=== PATIENT | female | born 1990 | race Caucasian/White ===

== ENCOUNTER → 2019-04-30 10:09 | Outpatient (BNVA) | payer SELFPAY | PROVIDERS: PCP Family Medicine; Visit Provider Nurse Practitioner | DX: J02.9 Acute pharyngitis, unspecified (principal); R50.9 Fever, unspecified | CPT/HCPCS: 87081; 87880 ==

== ENCOUNTER → 2019-11-01 15:28 | Outpatient (BNVA) | payer OTHER, SELFPAY | PROVIDERS: Family Provider Family Medicine; PCP Family Medicine; Visit Provider Nurse Practitioner | DX: M79.643 Pain in unspecified hand (principal) | CPT/HCPCS: 73110 ==

== ENCOUNTER → 2020-02-14 16:29 | Outpatient (BNVA) | payer OTHER, SELFPAY | PROVIDERS: Family Provider Family Medicine; PCP Family Medicine; Visit Provider Nurse Practitioner | DX: J02.9 Acute pharyngitis, unspecified (principal) | CPT/HCPCS: 87071; 87880 ==

== ENCOUNTER 2020-02-25 17:05 | Inpatient (IN) | payer SELFPAY ==
[2020-02-25 17:27] VITALS: BP 136/78; PULSE 128; RESP 18; TEMP 36.7; O2SAT 98; BMI 35.4
[2020-02-25 18:46] VITALS: BP 124/95; RESP 22; O2SAT 99
[2020-02-25] MEDS: diphenhydrAMINE 50 mg/mL SDV 1mL IVP (19:34)
[2020-02-25] MEDS: ketorolac 30 mg/mL INJ IVP (19:34)
[2020-02-25] MEDS: sodium chloride 0.9% 1,000 ML 999 ML IV ×3 (19:34→23:09)
[2020-02-25] MEDS: metoclopramide 5 mg/mL SDV 2 mL 10 MG IVP (19:34)
[2020-02-25 19:40] LABS: Basophils % 0.3 %; Eosinophils # 0.1 10^3/uL (0.0-0.8); Eosinophils % 1.4 %; Hematocrit 39.7 % (37.0-47.0); Hemoglobin 12.6 g/dL (11.5-15.3); Lymphocytes # 0.7 10^3/uL (0.8-4.8); Lymphocytes % 8.5 %; Mean Corpuscular HGB Conc 31.7 g/dL (30.0-36.0); Mean Corpuscular Hemoglobin 28.8 pg (28.0-34.0); Mean Corpuscular Volume 90.8 fL (81-99); Mean Platelet Volume 12.1 fL (7.4-10.4); Monocytes # 0.6 10^3/uL (0.2-0.9); Monocytes % 7.1 %; Neutrophils # 7.11 10^3/uL (1.8-7.7); Nucleated Red Blood Cells % 0 %; Platelet Count 178 10^3/cmm (130-400); Red Blood Count 4.37 10^6/uL (4.1-5.3); Red Cell Distribution Width 13.3 % (12.1-15.1); White Blood Count 8.7 10^3/uL (4.0-10.0)
[2020-02-25 20:06] LABS: Lactate (Lactic Acid level) 1.5 mmol/L (0.5-2.2)
[2020-02-25 20:14] LABS: HCG, Serum Qual Negative (Negative); Procalcitonin 2.89 ng/mL (0-0.5)
[2020-02-25 20:25] LABS: Alanine Aminotransferase 22 U/L (0-33); Alkaline Phosphatase 103 IU/L (35-105); Anion Gap 17.7 (5-19); Aspartate Amino Transferase 16 U/L (0-32); Blood Urea Nitrogen 28 mg/dL (6-20); Calcium 10.2 mg/dL (8.5-10.5); Carbon Dioxide 23 mmol/L (22-29); Chloride 97 mmol/L (98-107); Creatine Phosphokinase 37 U/L (26-192); Globulin 3.6 g/dL (1.3-4.6); Glomerular Filtration Rate 25.4 mL/min (90-130); Glucose 91 mg/dL (65-115); Osmolality Calculated 283 mOsm/kg (285-295); Potassium 3.7 mmol/L (3.5-5.1); Sodium 134 mmol/L (136-145); Total Bilirubin 0.5 mg/dL (0.15-1.2); Total Protein 7.6 g/dL (6.6-8.7)
[2020-02-25 20:35] LABS: Influenza A by IFA Negative (Negative)
[2020-02-25 20:36] LABS: Influenza B by IFA Negative (Negative)
[2020-02-25 20:37] LABS: SARS Covid-2 Antigen Negative (Negative)
[2020-02-25 20:38] LABS: C Reactive Protein 511.9 mg/L (0.0-4.9)
--- NOTE | 2020-02-25 21:30 | XR_ITS ---
WS: [id number] Exam: XR chest 1V portable [id number] Date/Time of Exam: 02/25/2020 9:41 PM Reason For Exam: fever No priors. Findings: The lungs are clear and fully expanded. Costophrenic angles are sharp. No infiltrates. Bronchovascula r relief appears normal. Cardiac silhouette is unremarkable. Bony elements are intact. XR/XR chest 1V portable [id number] IMPRESSION: Unremarkable chest radiograph.
--- NOTE | 2020-02-25 21:36 | PM.HP ---
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 Patient stating that her symptoms started with a headache on Sunday, she has history of migraines, she would describe this headache as throbbing migraine type headache, she did not notice any relationship with food, she is not sure about aggravating factors, she has taken 200 mg of ibuprofen 4 tablets x 4 a day with very poor p.o. intake, she has not noticed any vomiting but she has been nauseous, she took Imitrex 200mg. Her headache is not improving, she has not noticed any chest pain, she is not , she has not noticed any shortness of breath. Today she went to clinic, she had fever 102, tachycardic, she was complaining of dysuria, she was started on nitrofurantoin, she only took 1 tablet today because of worsening of symptoms she decided to come to the hospital for further evaluation. Diagnostics in the ER revealed sepsis, she was complaining of right flank pain, I have requested chest x-ray, CT abdomen pelvis, started on cefepime considering cystic fibrosis history. Requested blood culture and urine culture. Diagnostics reveal sepsis and GUTIERREZ on high procalcitonin, at the time of my evaluation patient was diaphoretic She is endorsing right flank pain, rigors, chills, diaphoresis and dysuria Review of Systems Const: Reports: fever(s), chills, body aches, change in appetite, fatigue and malaise Eyes: Denies: change in vision ENMT: Denies: throat pain Card: Denies: chest pain Resp: Denies: dyspnea GI: Reports: abdominal pain : Reports: flank pain Musc: Denies: neck pain Skin/Breast: Denies: rash Neuro: Denies: headache(s) Psych: Denies: anxiety Endo: Denies: polyuria Pan/Lymph: Denies: easy bruising All/Imm: Denies: urticaria Medications/Allergies Home Medications Medication Instructions Recorded Confirmed Last Taken Type Imitrex See Rx Instructions .ROUTE .COMPLEX 02/25/20 02/25/20 02/25/20 15:00 History Tylenol 3 tab PO PRN 02/25/20 02/25/20 Unknown History ibuprofen 800 mg PO PRN 02/25/20 02/25/20 02/25/20 History nitrofurantoin monohyd/m-cryst 100 mg PO BID 02/25/20 02/25/20 02/25/20 History [Macrobid] ondansetron HCl [Zofran] 4 - 8 mg PO PRN 02/25/20 02/25/20 02/25/20 15:00 History venlafaxine See Rx Instructions .ROUTE .COMPLEX 02/25/20 02/25/20 Unknown History Allergies Allergy/AdvReac Type Severity Reaction Status Date / Time amoxicillin Allergy Severe anaphylaxis Verified 02/25/20 18:22 latex Allergy Rash Verified 02/25/20 18:22 Penicillins Allergy ALGY-Difficulty Verified 02/25/20 18:22 Breathing azithromycin AdvReac Violence Verified 02/25/20 18:22 midazolam [From Versed] AdvReac ADR-Halluci Verified 02/25/20 18:22 nating PFSH Acute PFSH: Medical History (Updated 02/25/20 @ 22:01 by Varun Boogie MD) 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 Depression Fibromyalgia Diag age 18. Surgical History History of bilateral tubal ligation (02/11/19) Laparoscopic bilateral complete salpingectomy. Performed by Dr. Bustos at [facility] [place]. History of bladder surgery (~2004) Reconstruction by Dr. Willson History of tonsillectomy and adenoidectomy (~2005) Family History Mother Lung disease Diabetes Social History Smoking and tobacco status: former smoker Quit status (tobacco): has quit using tobacco Year quit tobacco: 09/2014 Former quit date comment: Started smoking at age 17 and smoked 1 pack per day Alcohol intake: never Female Reproductive History: Date of last menstrual period: 02/18/20 Vitals/I&O/Wt Last Vital Signs Temp 98.0 F 02/25/20 17:27 Pulse 128 H 02/25/20 17:27 Resp 22 H 02/25/20 18:46 BP 124/95 02/25/20 18:46 Pulse Ox 99 02/25/20 18:46 Weight last 48 hrs Weight 90.718 kg Physical Exam Narrative: EXAM NARRATIVE: Patient obese female She is currently in a dark room, bright light would bother her Saturating well on room air, tachycardic Normal blood pressure Right CVA tenderness positive Abdomen soft, distended, mild tenderness in right mid epigastric region, right flank Lower extremity no edema gangrene or ulcer Appropriate mood and affect No neurological deficit Does not look extremely dehydrated No acute respiratory distress No gross cranial nerve deficit noted Data : 02/25/20 19:29 02/25/20 19:29 A&P Assessment and plan (1) Sepsis: Status: Acute (2) UTI (urinary tract infection): Status: Acute (3) Migraine: Status: Acute (4) GUTIERREZ (acute kidney injury): Status: Acute Additional A&P Information Sepsis secondary to UTI Patient has history of cystic fibrosis, will obtain chest x-ray, obtain blood culture, urine culture CT abdomen pelvis revealed right-sided pyelonephritis, clinically she has right CVA tenderness Meet sepsis criteria with fever at the clinic 102, tachycardic tachypneic in the ER, positive procalcitonin, she is having rigors, chills, she is diaphoretic Start her on fluids and cefepime considering history of cystic fibrosis Migraine Failed Imitrex and ibuprofen therapy at home, I would use Tylenol 3 and morphine Acute kidney injury This most likely is secondary to use of ibuprofen 3200 mg a day without increasing fluid intake Started on fluids, monitor BMP, rule out pyelonephritis Awaiting urine culture Full code Regular diet DVT prophylaxis not needed, she is low risk Attestations Medical Necessity Statement*: Anticipating stay in the hospital cross more than 2 midnights continued IV antibiotics and fluids for sepsis Time Spent in Patient Care: (>than 50% of time spent in counselling and/or direct pt care on unit). 50mins Coding Level of Care Code Acute Hose Maker for [facility] Fwd Diagnoses Sepsis A41.9 UTI (urinary tract infection) N39.0 Migraine G43.909 GUTIERREZ (acute kidney injury) N17.9
--- NOTE | 2020-02-25 21:52 | CTR_ITS ---
PROCEDURE INFORMATION: Exam: CT Abdomen And Pelvis Without Contrast Exam date and time: 02/25/2020 10:11 PM Age: 29 years old Clinical indication: Abdominal pain; Localized; Right; Prior surgery; Surgery type: Bladder, tubal; Additional info: Pyeloneph right TECHNIQUE: Imaging protocol: Computed tomography of the abdomen and pelvis without contrast. Sagittal and coronal reformatted images were created and reviewed. Radiation optimization: All CT scans at this facility use at least one of these dose optimization techniques: automated exposure control; mA and/or kV adjustment per patient size (includes targeted exams where dose is matched to clinical indication); or iterative reconstruction. COMPARISON: US Viabile 1-10 Wk [id number] 07/13/2018 10:52 PM RADIATION DOSE METRICS: Total DLP (mGy-cm): 1365.69 FINDINGS: Limitations: Evaluation of solid organs and vasculature is limited without intravenous contrast. Lungs: Visualized lungs are clear. Pleural space: No pleural effusion. Heart: Visualized portions of the heart are unremarkable. Liver: The liver is unremarkable. Gallbladder and bile ducts: The gallbladder is unremarkable. No biliary ductal dilatation. Pancreas: The pancreas is unremarkable. No pancreatic ductal dilatation. Spleen: Mild enlargement of the spleen measuring 15.2 cm in length (series 602, image 33). Adrenal glands: The right and left adrenal glands are unremarkable. Kidneys and ureters: Enlargement of the right kidney suggesting edema. Extensive right perinephric inflammation. Inflammatory changes extend inferiorly along the right ureter. Mildly complex cyst with wall calcification in the right kidney measuring 4.7 cm. The left kidney is unremarkable. The left ureter is unremarkable. No hydroureteronephrosis. Stomach and bowel: Nonspecific air-fluid levels present in the small bowel and colon. No dilated bowel loops. No pneumatosis. No bowel wall thickening. Appendix: The appendix is visualized and is unremarkable. No findings to suggest acute appendicitis. Intraperitoneal space: No free intraperitoneal air. No ascites. No loculated fluid collections to suggest an abscess. Vasculature: No evidence for aortic aneurysm. Lymph nodes: No lymphadenopathy. Urinary bladder: The bladder is incompletely filled, which can limit evaluation. No focal abnormality in the bladder however. Reproductive: The uterus, right ovary, and left ovary are unremarkable. Bones/joints: No acute fracture. Soft tissues: The extra-abdominal soft tissues are unremarkable. CT/CT abdomen pelvis wo con [id number] IMPRESSION: 1. Evaluation is limited without intravenous contrast. There are findings suspicious for right pyelonephritis/ureteritis however. Recommend clinical correlation. 2. Bosniak type 2 cyst in the right kidney. No further workup recommended. 3. Mild splenomegaly. COMMENTS: Consistent with the [employer]'s Incidental Findings Committee white paper (J Am Royal Radiol 2018): Any incidental renal lesion less than 1 cm or classified as too small to characterize, or any incidental cystic renal lesion characterized as simple-appearing, is likely benign. No follow-up imaging is recommended for these lesions per consensus recommendations based on imaging criteria. Radiation Dose CTDIVOL = (mGy): DLP = 1365.69 (mGy-cm)
[2020-02-25 22:41] VITALS: BP 95/56; PULSE 90; RESP 18; O2SAT 97
[2020-02-25 23:10] VITALS: BP 93/56; PULSE 86; RESP 15; O2SAT 97
--- NOTE | 2020-02-25 23:39 | ED_ITS ---
HPI - Headache General: Chief Complaint: Headache Stated Complaint: MIGRAINE X 4 DAYS Time Seen by Provider: 02/25/20 18:30 Source: patient Mode of arrival: ambulatory Limitations: no limitations History of Present Illness: HPI Narrative: 29-year-old female patient with a history of migraines presents to the emergency department with migraine headaches that have been ongoing for about 4 days. She states that the migraines feel typical for her but is just more severe than usual. She has also had a fever and is on antibiotics for urinary tract infection. She has light and sound sensitivity. MD elicited complaint: headache and migraine Pertinent past history: migraines Onset (ago): day(s) (4) Onset description: suddenly Location: generalized Severity: severe Quality & Timing: throbbing Exacerbating factors: light and noise Relieving factors: nothing Associated symptoms: Reports fever(s), nausea, vomiting and weakness; Deny chest pain, confusion, cough, diaphoresis, eye pain, eye redness, lightheadedness, loss of vision, malaise, neck stiffness, numbness, paresthesias, photophobia, pre-syncope, rash, seizures, short of breath, sound sensitivity or syncope Treatments prior to arrival: acetaminophen, ibuprofen and migraine medication Review of Systems General: Reports: 10 or more systems reviewed and unremarkable except in HPI and below Const: Reports: fever(s); Denies: malaise or diaphoresis Eyes: Denies: change in vision or blurry vision ENMT: Denies: throat pain, enlarged tonsils, odynophagia, hoarseness, mouth pain or swelling of lips/tongue Card: Denies: chest pain, lightheadedness, syncope or pre-syncope Resp: Denies: dyspnea, productive cough or non-productive cough GI: Reports: nausea and vomiting : Reports: oliguria; Denies: flank pain, difficulty voiding, dysuria, urinary frequency, urinary urgency or urinary hesitancy Musc: Denies: neck pain, back pain or extremity swelling Skin/Breast: Denies: rash Neuro: Denies: confusion Endo: Denies: polyuria, polydipsia or tired all the time [facility] ED PFSH: Medical History (Updated 02/25/20 @ 23:53 by Elvia Cruz MD, [facility] [place]) 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 Depression Fibromyalgia Diag age 18. Surgical History History of bilateral tubal ligation (02/11/19) Laparoscopic bilateral complete salpingectomy. [place] [facility] [place] of bladder surgery (~2004) Reconstruction by Dr. Willson History of tonsillectomy and adenoidectomy (~2005) Family History Mother Lung disease Diabetes Social History Smoking and tobacco status: former smoker Quit status (tobacco): has quit using tobacco Year quit tobacco: 09/2014 Former quit date comment: Started smoking at age 17 and smoked 1 pack per day Alcohol intake: never Female Reproductive History: Date of last menstrual period: 02/18/20 Physical Exam Const: COMMON NORMALS: no acute distress, average body habitus, patient oriented x3, no limitations, healthy appearing, alert and well nourished HENMT: COMMON NORMALS: normocephalic, atraumatic and moist oral mucous membranes HEAD & SCALP: normocephalic, atraumatic and scalp tenderness Eye: COMMON NORMALS: Equal, round and reactive pupils present, EOMs intact bilaterally, conjunctivae normal and no scleral icterus CONJUNCTIVA: Yes conjunctivae normal PUPIL: Yes Equal, round and reactive pupils present DIRECT OPHTHALMOSCOPY: No photophobia Neck/C-Spine: COMMON NORMALS: full ROM, supple, no meningeal signs, no JVD and No carotid bruits Resp: COMMON NORMALS: normal respiratory effort, No retractions, No use of accessory muscles, clear to auscultation bilaterally and percussion normal AUSCULTATION: clear to auscultation bilaterally PERCUSSION: percussion normal Cardio: COMMON NORMALS: no JVD, regular rate, regular rhythm, S1 normal heart sound present, S2 normal heart sound present, No gallops present (Cardio), No clicks present (Cardio), No murmurs present (Cardio), No rub (Cardio) and Peripheral pulses 2+ throughout RATE: regular rate RHYTHM: regular rhythm HEART SOUNDS: S1 normal heart sound present and S2 normal heart sound present PERIPHERAL PULSES: Peripheral pulses 2+ throughout GI: COMMON NORMALS: Normal to inspection, nondistended, normoactive bowel sounds present, Soft to palpation, non-tender, No hepatosplenomegaly present, no masses and no bruits PALPATION: Yes Soft to palpation and Yes No hepatosplenomegaly present Extremity: COMMON NORMALS: normal to inspection, full ROM, capillary refill normal, no calf tenderness and no pedal edema Neuro: COMMON NORMALS: patient oriented x3 SENSORIUM/ORIENTATION: Yes alert MENINGEAL SIGNS: Yes no meningeal signs Skin: COMMON NORMALS: no rashes or lesions noted, no wounds, turgor normal, no jaundice, no petechiae and no mottling GENERAL SKIN EXAM: no rashes or lesions noted and turgor normal Course ED course: 29-year-old female patient with migraine headaches. She has a history of migraine headaches and this is more serious than usual. She is also being treated for UTI. In the emergency department she received IV fluids and medications for migraine headache. Her migraine was improved, however on laboratory evaluation she was noted to be in acute renal failure. CT scan also shows a possible pyelonephritis and since she has been diagnosed with a UTI I think it is acceptable to start antibiotics for that. She is admitted to the hospital for further evaluation and management Consultations: Consultation #1: Dr. Boogie, hospitalist who kindly accepted patient to his service Vital Signs: Vital signs: Vital Signs Temperature 98.0 F 02/25/20 17:27 Pulse Rate 86 02/25/20 23:10 Respiratory Rate 15 02/25/20 23:10 Blood Pressure 93/56 02/25/20 23:10 Pulse Oximetry 97 02/25/20 23:10 MDM - Headache MDM Narrative: Medical decision making narrative: 29-year-old female patient who presents to the hospital for migraine headaches. However on evaluation she was found to be in acute renal failure, and has pyelonephritis. She is admitted for management of the above conditions and further evaluation Medical Records: Attestation: I reviewed the patient's medical records. Lab Data: Attestation: I reviewed the patient's lab results. Labs: Lab Results 02/25/20 02/25/20 02/25/20 Range/Units 19:29 19:29 19:29 WBC 8.7 (4.0-10.0) 10^3/ uL RBC 4.37 (4.1-5.3) 10^6/u L Hgb 12.6 (11.5-15.3) g/dL Hct 39.7 (37.0-47.0) % MCV 90.8 (81-99) fL MCH 28.8 (28.0-34.0) pg MCHC 31.7 (30.0-36.0) g/dL RDW 13.3 (12.1-15.1) % Plt Count 178 (130-400) 10^3/c mm MPV 12.1 H (7.4-10.4) fL Neut % (Auto) 82.0 % Lymph % (Auto) 8.5 % Towner % (Auto) 7.1 % Eos % (Auto) 1.4 % Baso % (Auto) 0.3 % Neut # (Auto) 7.11 (1.8-7.7) 10^3/u L Lymph # (Auto) 0.7 L (0.8-4.8) 10^3/u L Towner # (Auto) 0.6 (0.2-0.9) 10^3/u L Eos # (Auto) 0.1 (0.0-0.8) 10^3/u L Baso # (Auto) 0.0 (0.0-0.1) 10^3/u L Nucleated RBC % (a uto) 0 % Nucleated RBCs # 0.0 /100WBC Sodium 134 L (136-145) mmol/L Potassium 3.7 (3.5-5.1) mmol/L Chloride 97 L (98-107) mmol/L Carbon Dioxide 23 (22-29) mmol/L Anion Gap 17.7 (5-19) BUN 28 H (6-20) mg/dL Creatinine 2.3 H (0.5-0.9) mg/dL GFR Calculation 25.4 L (90-130) mL/min Glucose 91 (65-115) mg/dL Calculated Osmolal ity 283 L (285-295) mOsm/k g Lactate 1.5 (0.5-2.2) mmol/L Calcium 10.2 (8.5-10.5) mg/dL Total Bilirubin 0.5 (0.15-1.2) mg/dL AST 16 (0-32) U/L ALT 22 (0-33) U/L Alkaline Phosphata se 103 (35-105) IU/L Creatine Kinase 37 (26-192) U/L C-Reactive Protein 511.9 H (0.0-4.9) mg/L Total Protein 7.6 (6.6-8.7) g/dL Albumin 4.0 (3.5-5.2) g/dL Globulin 3.6 (1.3-4.6) g/dL Procalcitonin 2.89 H (0-0.5) ng/mL HCG, Qual (Negative) Influenza Type A A g (Negative) Influenza Type B A g (Negative) SARS-CoV-2 Ag (Rap id) (Negative) 02/25/20 02/25/20 02/25/20 Range/Units 19:29 19:29 19:29 WBC (4.0-10.0) 10^3/ uL RBC (4.1-5.3) 10^6/u L Hgb (11.5-15.3) g/dL Hct (37.0-47.0) % MCV (81-99) fL MCH (28.0-34.0) pg MCHC (30.0-36.0) g/dL RDW (12.1-15.1) % Plt Count (130-400) 10^3/c mm MPV (7.4-10.4) fL Neut % (Auto) % Lymph % (Auto) % Towner % (Auto) % Eos % (Auto) % Baso % (Auto) % Neut # (Auto) (1.8-7.7) 10^3/u L Lymph # (Auto) (0.8-4.8) 10^3/u L Towner # (Auto) (0.2-0.9) 10^3/u L Eos # (Auto) (0.0-0.8) 10^3/u L Baso # (Auto) (0.0-0.1) 10^3/u L Nucleated RBC % (a uto) % Nucleated RBCs # /100WBC Sodium (136-145) mmol/L Potassium (3.5-5.1) mmol/L Chloride (98-107) mmol/L Carbon Dioxide (22-29) mmol/L Anion Gap (5-19) BUN (6-20) mg/dL Creatinine (0.5-0.9) mg/dL GFR Calculation (90-130) mL/min Glucose (65-115) mg/dL Calculated Osmolal ity (285-295) mOsm/k g Lactate (0.5-2.2) mmol/L Calcium (8.5-10.5) mg/dL Total Bilirubin (0.15-1.2) mg/dL AST (0-32) U/L ALT (0-33) U/L Alkaline Phosphata se (35-105) IU/L Creatine Kinase (26-192) U/L C-Reactive Protein (0.0-4.9) mg/L Total Protein (6.6-8.7) g/dL Albumin (3.5-5.2) g/dL Globulin (1.3-4.6) g/dL Procalcitonin (0-0.5) ng/mL HCG, Qual Negative (Negative) Influenza Type A A g Negative (Negative) Influenza Type B A g Negative (Negative) SARS-CoV-2 Ag (Rap id) Negative (Negative) Imaging Data^: CT Abd/Pel: Attestation: I personally reviewed and interpreted this imaging study as follows: Radiologist's impression: [address] [address] [address] Scan Report Signed Patient: James Gupta #: [id number] : 1990Acct#:[id number] Age/Sex: 29 / FADM Date: 02/25/20 Loc: ERRoom/Bed: Attending Dr: Ordering Provider/Ordering MD: Varun Boogie MD Date of Service: 02/25/20 Procedure(s): CT abdomen pelvis con [id number] Accession Number(s): [id number] Report Number: [id number] PROCEDURE INFORMATION: Exam: CT Abdomen And Pelvis Without Contrast Exam date and time: 02/25/2020 10:11 PM Age: 29 years old Clinical indication: Abdominal pain; Localized; Right; Prior surgery; Surgery type: Bladder, tubal; Additional info: Pyeloneph right TECHNIQUE: Imaging protocol: Computed tomography of the abdomen and pelvis without contrast. Sagittal and coronal reformatted images were created and reviewed. Radiation optimization: All CT scans at this facility use at least one of these dose optimization techniques: automated exposure control; mA and/or kV adjustment per patient size (includes targeted exams where dose is matched to clinical indication); or iterative reconstruction. COMPARISON: US Shantebile 1-10 Wk [id number] 07/13/2018 10:52 PM RADIATION DOSE METRICS: Total DLP (mGy-cm): 1365.69 FINDINGS: Limitations: Evaluation of solid organs and vasculature is limited without intravenous contrast. Lungs: Visualized lungs are clear. Pleural space: No pleural effusion. Heart: Visualized portions of the heart are unremarkable. Liver: The liver is unremarkable. Gallbladder and bile ducts: The gallbladder is unremarkable. No biliary ductal dilatation. Pancreas: The pancreas is unremarkable. No pancreatic ductal dilatation. Spleen: Mild enlargement of the spleen measuring 15.2 cm in length (series 602, image 33). Adrenal glands: The right and left adrenal glands are unremarkable. Kidneys and ureters: Enlargement of the right kidney suggesting edema. Extensive right perinephric inflammation. Inflammatory changes extend inferiorly along the right ureter. Mildly complex cyst with wall calcification in the right kidney measuring 4.7 cm. The left kidney is unremarkable. The left ureter is unremarkable. No hydroureteronephrosis. Stomach and bowel: Nonspecific air-fluid levels present in the small bowel and colon. No dilated bowel loops. No pneumatosis. No bowel wall thickening. Appendix: The appendix is visualized and is unremarkable. No findings to suggest acute appendicitis. Intraperitoneal space: No free intraperitoneal air. No ascites. No loculated fluid collections to suggest an abscess. Vasculature: No evidence for aortic aneurysm. Lymph nodes: No lymphadenopathy. Urinary bladder: The bladder is incompletely filled, which can limit evaluation. No focal abnormality in the bladder however. Reproductive: The uterus, right ovary, and left ovary are unremarkable. Bones/joints: No acute fracture. Soft tissues: The extra-abdominal soft tissues are unremarkable. CT/CT abdomen pelvis wo con [id number] IMPRESSION: 1. Evaluation is limited without intravenous contrast. There are findings suspicious for right pyelonephritis/ureteritis however. Recommend clinical correlation. 2. Bosniak type 2 cyst in the right kidney. No further workup recommended. 3. Mild splenomegaly. COMMENTS: Consistent with the [employer]'s Incidental Findings Committee white paper (J Am Royal Radiol 2018): Any incidental renal lesion less than 1 cm or classified as too small to characterize, or any incidental cystic renal lesion characterized as simple-appearing, is likely benign. No follow-up imaging is recommended for these lesions per consensus recommendations based on imaging criteria. Radiation Dose CTDIVOL = (mGy): DLP = 1365.69 (mGy-cm) Dictated By:Yris Khan MD Signed By:Yris Khan MDSigned Date/Time:02/25/202237 DD/ 35 Discharge Plan Discharge Patient Disposition: Admitted As Inpatient Admit Provider: Varun Boogie Clinical Impression: Acute bacterial pyelonephritis Acute renal failure Qualifiers: Acute renal failure type: unspecified Qualified Code(s): N17.9 - Acute kidney failure, unspecified Sepsis Qualifiers: Sepsis type: sepsis due to unspecified organism Sepsis acute organ dysfunction status: with acute organ dysfunction Severe sepsis acute organ dysfunction type: acute renal failure Acute renal failure type: unspecified Severe sepsis shock status: without septic shock Qualified Code(s): A41.9 - Sepsis, unspecified organism Condition: Stable Coding Level of Care Code ED Laminating Press Operator for Chg Fwd Exam Comprehensive
[2020-02-25] MEDS: dexamethasone 4 mg/mL INJ 10 MG IVP (23:54)
[2020-02-25] MEDS: magnesium sulfate premix 2 GM/50 ML PIGGYBACK IV (23:59)
[2020-02-26] VITALS: BP 91/60; PULSE 83; RESP 18; TEMP 36.6; O2SAT 99
[2020-02-26] MEDS: cefepime 2,000 MG in sodium chloride 0.9% (plus) 50 ML 100 MG IV ×2 (01:14→13:21)
[2020-02-26] MEDS: dextrose 5%-sod chloride 0.45% 1,000 ML 100 ML IV ×3 (01:48→20:47)
[2020-02-26] MEDS: valproic acid inj 1,000 MG in sodium chloride 0.9% 50 ML 55 MG IV (02:55)
[2020-02-26 03:48] VITALS: BP 94/62; PULSE 68; RESP 18; TEMP 36.6; O2SAT 97
[2020-02-26] MEDS: acetaminophen-codeine 300-30mg Tablet 1 TAB PO (03:53)
[2020-02-26 05:45] LABS: Basophils # 0.1 10^3/uL (0.0-0.1); Basophils % 0.5 %; Hemoglobin 10.5 g/dL (11.5-15.3); Lymphocytes # 0.5 10^3/uL (0.8-4.8); Lymphocytes % 5.9 %; Mean Corpuscular HGB Conc 30.9 g/dL (30.0-36.0); Mean Corpuscular Hemoglobin 28.8 pg (28.0-34.0); Mean Corpuscular Volume 93.4 fL (81-99); Mean Platelet Volume 12.7 fL (7.4-10.4); Monocytes # 0.6 10^3/uL (0.2-0.9); Monocytes % 6.1 %; Neutrophils # 7.91 10^3/uL (1.8-7.7); Neutrophils % 86.2 %; Nucleated Red Blood Cells % 0 %; Platelet Count 141 10^3/cmm (130-400); Red Blood Count 3.64 10^6/uL (4.1-5.3); Red Cell Distribution Width 13.5 % (12.1-15.1); White Blood Count 9.2 10^3/uL (4.0-10.0)
[2020-02-26 06:10] LABS: Blood Urea Nitrogen 28 mg/dL (6-20); Calcium 8.4 mg/dL (8.5-10.5); Carbon Dioxide 20 mmol/L (22-29); Chloride 108 mmol/L (98-107); Glomerular Filtration Rate 36.1 mL/min (90-130); Glucose 156 mg/dL (65-115); Osmolality Calculated 297 mOsm/kg (285-295); Sodium 139 mmol/L (136-145)
[2020-02-26 06:14] LABS: Anion Gap 15.5 (5-19); Potassium 4.5 mmol/L (3.5-5.1)
[2020-02-26 07:59] VITALS: BP 89/54; PULSE 73; RESP 17; TEMP 36.9; O2SAT 96
--- NOTE | 2020-02-26 08:43 | PM.PN ---
Subjective Subjective: Interval history: Complaining of flank pain. Noted improvement since admission. Migraine improved. No fever, chills, nausea or vomiting. Vitals/I&O/Wt Last Vital Signs Temp 97.6 F 02/27/20 00:00 Pulse 72 02/27/20 00:00 Resp 16 02/27/20 00:00 BP 106/72 02/27/20 00:00 Pulse Ox 100 02/27/20 00:00 02/26/20 02/26/20 02/27/20 14:59 22:59 06:59 Intake Total 1290 / 1290 985 / 2275 240 / 2515 Output Total 500 / 500 400 / 900 600 / 1500 Balance 790 / 790 585 / 1375 -360 / 1015 Weight last 48 hrs Weight 90.718 kg Physical Exam Narrative: EXAM NARRATIVE: Patient obese female General : Alert, Awake and oriented x 3 HEENT ; EOMI, PERRLA Chest : Clear to auscultation CVS : Regular rate and rythym Abd: soft - positive CVA tenderness on right Ext ; no edema Data : 02/26/20 05:02 02/26/20 05:02 Micro: Microbiology 02/25/20 22:22 Blood Culture - Preliminary Blood NEGATIVE TO DATE 02/25/20 22:22 Blood Culture - Preliminary Blood NEGATIVE TO DATE A&P Assessment and plan (1) Sepsis: Status: Acute Qualifiers: Acute renal failure type: unspecified Sepsis acute organ dysfunction status: with acute organ dysfunction Sepsis type: sepsis due to unspecified organism Severe sepsis acute organ dysfunction type: acute renal failure Severe sepsis shock status: without septic shock Qualified Code(s): A41.9 - Sepsis, unspecified organism; R65.20 - Severe sepsis without septic shock; N17.9 - Acute kidney failure, unspecified (2) UTI (urinary tract infection): Status: Acute (3) Migraine: Status: Acute (4) GUTIERREZ (acute kidney injury): Status: Acute Additional A&P Information Sepsis secondary to UTI and right sided pyelonephritis Acute kidney injury Migraine Plan: Continue Cefepime 2g IV q12hr Follow up on culture Repeat BMP in am Continue IVF Monitor urine output Avoid NSAIDs Consider Nephrology consult Renal US if worsening creatinine Pain control Full code Regular diet DVT prophylaxis not needed, she is low risk Attestations Medical Necessity Statement*: Will require further hospitalization for IV abx Coding Level of Care Code Acute Process Development Manager for [facility] Fwd Diagnoses Sepsis A41.9; R65.20; N17.9 Acute renal failure type: unspecified Sepsis acute organ dysfunction status: with acute organ dysfunction Sepsis type: sepsis due to unspecified organism Severe sepsis acute organ dysfunction type: acute renal failure Severe sepsis shock status: without septic shock UTI (urinary tract infection) N39.0 Migraine G43.909 GUTIERREZ (acute kidney injury) N17.9
[2020-02-26 11:22] VITALS: BP 100/65; PULSE 79; RESP 18; TEMP 37.1; O2SAT 98
[2020-02-26] MEDS: HYDROcodone-acetaminophen 5-325 mg Tablet 1 TAB PO (13:50)
[2020-02-26 15:47] VITALS: BP 105/69; PULSE 76; RESP 18; TEMP 37.2; O2SAT 97
[2020-02-26 19:50] VITALS: BP 115/77; PULSE 80; RESP 20; TEMP 36.8; O2SAT 99
[2020-02-26] MEDS: morphine 4 mg/mL SDV 1 mL 2 MG IVP (22:45)
[2020-02-26] MEDS: ondansetron 2 mg/ML SDV 2 mL 4 MG IVP (22:46)
[2020-02-27] VITALS: BP 106/72; PULSE 72; RESP 16; TEMP 36.4; O2SAT 100
--- NOTE | 2020-02-27 00:22 | PC.NURSE ---
Notified Dr. Boogie of patient having onset of pruritis after giving morphine and zofran IVP. Order received for one time dose of benadryl 12.5mg IVP.
[2020-02-27] MEDS: cefepime 2,000 MG in sodium chloride 0.9% (plus) 50 ML 100 MG IV ×2 (00:24→11:31)
[2020-02-27] MEDS: diphenhydrAMINE 50 mg/mL SDV 1mL 12.5 MG IVP (00:30)
--- NOTE | 2020-02-27 01:24 | PC.NURSE ---
Pruritis Patient reports improvement in itching since administration of benadryl IVP. Will continue to monitor.
[2020-02-27 04:00] VITALS: BP 118/82; PULSE 67; RESP 18; TEMP 36.6; O2SAT 97
[2020-02-27 06:41] LABS: Basophils % 0.4 %; Hematocrit 29.5 % (37.0-47.0); Hemoglobin 9.3 g/dL (11.5-15.3); Lymphocytes # 1.1 10^3/uL (0.8-4.8); Lymphocytes % 9.5 %; Mean Corpuscular HGB Conc 31.5 g/dL (30.0-36.0); Mean Corpuscular Hemoglobin 29.1 pg (28.0-34.0); Mean Corpuscular Volume 92.2 fL (81-99); Monocytes # 1.2 10^3/uL (0.2-0.9); Monocytes % 10.4 %; Neutrophils # 8.88 10^3/uL (1.8-7.7); Neutrophils % 78.9 %; Nucleated Red Blood Cells % 0 %; Platelet Count 180 10^3/cmm (130-400); White Blood Count 11.3 10^3/uL (4.0-10.0)
[2020-02-27 06:49] LABS: Alanine Aminotransferase 15 U/L (0-33); Albumin Level 2.7 g/dL (3.5-5.2); Alkaline Phosphatase 75 IU/L (35-105); Blood Urea Nitrogen 22 mg/dL (6-20); Calcium 7.9 mg/dL (8.5-10.5); Carbon Dioxide 21 mmol/L (22-29); Chloride 106 mmol/L (98-107); Glomerular Filtration Rate 49.1 mL/min (90-130); Glucose 163 mg/dL (65-115); Osmolality Calculated 287 mOsm/kg (285-295); Sodium 135 mmol/L (136-145); Total Bilirubin 0.2 mg/dL (0.15-1.2); Total Protein 5.7 g/dL (6.6-8.7)
[2020-02-27 07:17] LABS: Aspartate Amino Transferase 16 U/L (0-32)
[2020-02-27 08:00] VITALS: BP 96/60; PULSE 66; RESP 18; TEMP 36.9; O2SAT 100
--- NOTE | 2020-02-27 11:16 | PM.PN ---
Subjective Subjective: Interval history: Overnight patient was complaining of headache. States morphine or any opiod derivatives lead to worsening migraines. Vitals/I&O/Wt Last Vital Signs Temp 98.5 F 02/27/20 08:00 Pulse 66 02/27/20 08:00 Resp 18 02/27/20 08:00 BP 96/60 02/27/20 08:00 Pulse Ox 100 02/27/20 08:00 02/26/20 02/27/20 02/27/20 22:59 06:59 14:59 Intake Total 985 / 2275 240 / 2515 120 / 120 Output Total 400 / 900 600 / 1500 Balance 585 / 1375 -360 / 1015 120 / 120 Weight last 48 hrs Weight 90.718 kg Physical Exam Narrative: EXAM NARRATIVE: Patient obese female General : Alert, Awake and oriented x 3 HEENT ; EOMI, PERRLA Chest : Clear to auscultation CVS : Regular rate and rythym Abd: soft - positive CVA tenderness on right Ext ; no edema Data : 02/27/20 04:00 02/27/20 04:00 Micro: Microbiology 02/26/20 13:34 Urine Culture - Preliminary Urine,Voided 02/25/20 22:22 Blood Culture - Preliminary Blood NEGATIVE TO DATE 02/25/20 22:22 Blood Culture - Preliminary Blood NEGATIVE TO DATE A&P Assessment and plan (1) Sepsis: Status: Acute Qualifiers: Acute renal failure type: unspecified Sepsis acute organ dysfunction status: with acute organ dysfunction Sepsis type: sepsis due to unspecified organism Severe sepsis acute organ dysfunction type: acute renal failure Severe sepsis shock status: without septic shock Qualified Code(s): A41.9 - Sepsis, unspecified organism; R65.20 - Severe sepsis without septic shock; N17.9 - Acute kidney failure, unspecified (2) UTI (urinary tract infection): Status: Acute (3) Migraine: Status: Acute (4) GUTIERREZ (acute kidney injury): Status: Acute Additional A&P Information Sepsis secondary to UTI/ Right Sided Pyelonephritis Acute kidney injury Migraine Plan: Continue Cefepime 2g IV q12hr Follow up on culture - NGTD Repeat BMP in am Continue IVF Creatinine improved to 1.3 Monitor urine output Avoid NSAIDs Consider Nephrology consult Renal US if worsening creatinine Will add Imitrex for migraines D/C Morphine Tylenol PRN for pain Full code Regular diet DVT prophylaxis not needed, she is low risk Attestations Medical Necessity Statement*: Will require additional hospitalization for management of UTI/Sepsis requiring antibiotics. Time Spent in Patient Care: Greater than 35 minutes Coding Level of Care Code Acute Wrapper Sizer for [facility] Fwd Diagnoses Sepsis A41.9; R65.20; N17.9 Acute renal failure type: unspecified Sepsis acute organ dysfunction status: with acute organ dysfunction Sepsis type: sepsis due to unspecified organism Severe sepsis acute organ dysfunction type: acute renal failure Severe sepsis shock status: without septic shock UTI (urinary tract infection) N39.0 Migraine G43.909 GUTIERREZ (acute kidney injury) N17.9
[2020-02-27] MEDS: SUMAtriptan 25 mg Tablet 50 MG PO (11:19)
[2020-02-27] MEDS: ondansetron 2 mg/ML SDV 2 mL 4 MG IVP ×2 (11:21→23:00)
[2020-02-27 12:00] VITALS: BP 123/82; PULSE 66; RESP 18; TEMP 37.1; O2SAT 92
[2020-02-27] MEDS: acetaminophen 325 mg Tablet 650 MG PO ×2 (15:39→22:58)
[2020-02-27] MEDS: dextrose 5%-sod chloride 0.45% 1,000 ML 100 ML IV ×2 (15:40→21:33)
[2020-02-27 16:00] VITALS: BP 108/74; PULSE 77; RESP 18; TEMP 37.2; O2SAT 100
[2020-02-27 20:00] VITALS: BP 104/68; PULSE 64; RESP 20; TEMP 36.8; O2SAT 100
[2020-02-28] VITALS (8 sets, daily range): BP systolic 98–118; BP diastolic 64–82; PULSE 60–96; RESP 17–20; TEMP 36.8–38.3; O2SAT 97–100
[2020-02-28] MEDS: cefepime 2,000 MG in sodium chloride 0.9% (plus) 50 ML 100 MG IV ×2 (02:18→15:30)
[2020-02-28] MEDS: acetaminophen 325 mg Tablet 650 MG PO ×3 (08:27→22:39)
[2020-02-28] MEDS: dextrose 5%-sod chloride 0.45% 1,000 ML 100 ML IV ×2 (08:40→21:38)
[2020-02-28] MEDS: HYDROmorphone 1 mg/mL INJ 1 mL 0.4 MG IVP (09:59)
[2020-02-28] MEDS: SUMAtriptan 25 mg Tablet 50 MG PO (11:48)
--- NOTE | 2020-02-28 12:12 | USR_ITS ---
PROCEDURE INFORMATION: Exam: US Retroperitoneal; Complete; Kidneys and Bladder Exam date and time: 02/28/2020 3:47 PM Age: 29 years old Clinical indication: Abdominal pain; Additional info: Right sided pyelonephritis, persistent fever, angelic TECHNIQUE: Imaging protocol: Real-time ultrasound of the retroperitoneum with image documentation. Complete exam focused on the kidneys and bladder. COMPARISON: [place] 1[place]10 [place] [id number] 07/13/2018 10:52 PM FINDINGS: Right kidney: 4.6 cm anechoic septated cyst in the inferior right kidney. No mass, hydronephrosis, or calculus. Left kidney: See Right kidney finding. Urinary bladder: Unremarkable. US/US renal BI* [id number] IMPRESSION: 1. No acute finding. 2. Benign septated right renal cyst. COMMENTS: Consistent with the [employer]'s Incidental Findings Committee white paper (J Am Royal [employer]iol 2018): Any incidental renal lesion less than 1 cm or classified as too small to characterize, or any incidental cystic renal lesion characterized as simple-appearing, is likely benign. No follow-up imaging is recommended for these lesions per consensus recommendations based on imaging criteria.
--- NOTE | 2020-02-28 12:43 | PM.PN ---
Subjective Subjective: Interval history: Noted increase in right flank pain radiating to groin. Noted it to be 10/10 this am with low grade fever. Denied dysuria, frequency or urgency. No hematuria. Pain improved with Dilaudid however started to have migraine afterwards. Feeling nausea however no emesis. No chest pain or dyspnea. Vitals/I&O/Wt Last Vital Signs Temp 98.2 F 02/28/20 11:55 Pulse 60 02/28/20 11:55 Resp 18 02/28/20 11:55 BP 98/64 02/28/20 11:55 Pulse Ox 100 02/28/20 09:59 02/27/20 02/28/20 02/28/20 22:59 06:59 14:59 Intake Total 1480 / 1650 480 / 2130 1000 / 1000 Output Total 600 / 600 400 / 1000 Balance 880 / 1050 80 / 1130 1000 / 1000 Physical Exam Narrative: EXAM NARRATIVE: Patient obese female General : Alert, Awake and oriented x 3 HEENT ; EOMI, PERRLA Chest : Clear to auscultation CVS : Regular rate and rythym Abd: soft - positive CVA tenderness on right Ext ; no edema Data : 02/27/20 04:00 02/27/20 04:00 Micro: Microbiology 02/26/20 13:34 Urine Culture - Final Urine,Voided A&P Assessment and plan (1) Sepsis: Status: Acute Qualifiers: Acute renal failure type: unspecified Sepsis acute organ dysfunction status: with acute organ dysfunction Sepsis type: sepsis due to unspecified organism Severe sepsis acute organ dysfunction type: acute renal failure Severe sepsis shock status: without septic shock Qualified Code(s): A41.9 - Sepsis, unspecified organism; R65.20 - Severe sepsis without septic shock; N17.9 - Acute kidney failure, unspecified (2) UTI (urinary tract infection): Status: Acute (3) Migraine: Status: Acute (4) GUTIERREZ (acute kidney injury): Status: Acute Additional A&P Information Sepsis secondary to UTI/ Right Sided Pyelonephritis Acute kidney injury Migraine Plan: Continue Cefepime 2g IV q12hr Follow up on culture - NGTD Repeat BMP today Continue IVF - change to NS Creatinine improved to 1.3 - repeat today Monitor urine output Avoid NSAIDs Consider Nephrology consult Renal US today May require repeat CT abd/pelvis if fever or pain persistent Imitrex for migraines D/C Morphine, attempt to avoid narcotics Tylenol PRN for pain Full code Regular diet DVT prophylaxis not needed, she is low risk Attestations Medical Necessity Statement*: Will require further hospitalization for management of pyelonephritis and flank pain. Time Spent in Patient Care: Greater than 35 minutes Coding Level of Care Code Acute Dobby Loom Chain Pegger for [facility] Fwd Diagnoses Sepsis A41.9; R65.20; N17.9 Acute renal failure type: unspecified Sepsis acute organ dysfunction status: with acute organ dysfunction Sepsis type: sepsis due to unspecified organism Severe sepsis acute organ dysfunction type: acute renal failure Severe sepsis shock status: without septic shock UTI (urinary tract infection) N39.0 Migraine G43.909 GUTIERREZ (acute kidney injury) N17.9
[2020-02-28 18:55] LABS: Basophils % 0.6 %; Eosinophils # 0.1 10^3/uL (0.0-0.8); Eosinophils % 1.8 %; Hematocrit 31.5 % (37.0-47.0); Hemoglobin 9.6 g/dL (11.5-15.3); Lymphocytes # 1.7 10^3/uL (0.8-4.8); Lymphocytes % 27.2 %; Mean Corpuscular HGB Conc 30.5 g/dL (30.0-36.0); Mean Corpuscular Hemoglobin 28.6 pg (28.0-34.0); Mean Corpuscular Volume 93.8 fL (81-99); Mean Platelet Volume 11.6 fL (7.4-10.4); Monocytes # 0.6 10^3/uL (0.2-0.9); Monocytes % 9.4 %; Neutrophils # 3.44 10^3/uL (1.8-7.7); Neutrophils % 54.9 %; Nucleated Red Blood Cells % 0 %; Platelet Count 170 10^3/cmm (130-400); Red Blood Count 3.36 10^6/uL (4.1-5.3); Red Cell Distribution Width 14.3 % (12.1-15.1); White Blood Count 6.3 10^3/uL (4.0-10.0)
[2020-02-28 19:12] LABS: Anion Gap 10.5 (5-19); Blood Urea Nitrogen 8 mg/dL (6-20); Calcium 7.9 mg/dL (8.5-10.5); Carbon Dioxide 24 mmol/L (22-29); Chloride 106 mmol/L (98-107); Glomerular Filtration Rate 75.1 mL/min (90-130); Glucose 172 mg/dL (65-115); Osmolality Calculated 288 mOsm/kg (285-295); Sodium 138 mmol/L (136-145)
[2020-02-28 19:20] LABS: Potassium 2.5 mmol/L (3.5-5.1)
[2020-02-28 19:53] LABS: Slide Review Slide Review Perform
[2020-02-29] VITALS: BP 112/71; PULSE 85; RESP 16; TEMP 37.3; O2SAT 97
[2020-02-29] MEDS: cefepime 2,000 MG in sodium chloride 0.9% (plus) 50 ML 100 MG IV ×2 (01:22→13:01)
[2020-02-29] MEDS: ondansetron 2 mg/ML SDV 2 mL 4 MG IVP ×2 (02:49→10:34)
[2020-02-29] MEDS: TRAMadol 50 mg Tablet PO (03:02)
[2020-02-29 03:50] VITALS: BP 123/85; PULSE 82; RESP 18; TEMP 36.7; O2SAT 99
[2020-02-29] MEDS: acetaminophen 325 mg Tablet 650 MG PO ×2 (05:23→13:01)
[2020-02-29 05:50] LABS: Basophils # 0.1 10^3/uL (0.0-0.1); Basophils % 0.7 %; Eosinophils # 0.1 10^3/uL (0.0-0.8); Eosinophils % 1.7 %; Hematocrit 32.6 % (37.0-47.0); Hemoglobin 10.1 g/dL (11.5-15.3); Lymphocytes # 1.9 10^3/uL (0.8-4.8); Lymphocytes % 26.3 %; Mean Corpuscular Hemoglobin 28.5 pg (28.0-34.0); Mean Corpuscular Volume 92.1 fL (81-99); Mean Platelet Volume 11.3 fL (7.4-10.4); Monocytes # 0.8 10^3/uL (0.2-0.9); Monocytes % 10.6 %; Neutrophils # 3.62 10^3/uL (1.8-7.7); Nucleated Red Blood Cells % 0 %; Platelet Count 196 10^3/cmm (130-400); Red Blood Count 3.54 10^6/uL (4.1-5.3); Red Cell Distribution Width 14.1 % (12.1-15.1); White Blood Count 7.1 10^3/uL (4.0-10.0)
[2020-02-29 06:18] LABS: Alanine Aminotransferase 15 U/L (0-33); Albumin Level 2.8 g/dL (3.5-5.2); Alkaline Phosphatase 69 IU/L (35-105); Anion Gap 10.5 (5-19); Aspartate Amino Transferase 13 U/L (0-32); Blood Urea Nitrogen 7 mg/dL (6-20); Calcium 8.1 mg/dL (8.5-10.5); Carbon Dioxide 26 mmol/L (22-29); Chloride 104 mmol/L (98-107); Globulin 3.1 g/dL (1.3-4.6); Glomerular Filtration Rate 75.1 mL/min (90-130); Glucose 109 mg/dL (65-115); Osmolality Calculated 283 mOsm/kg (285-295); Potassium 3.5 mmol/L (3.5-5.1); Sodium 137 mmol/L (136-145); Total Bilirubin 0.2 mg/dL (0.15-1.2); Total Protein 5.9 g/dL (6.6-8.7)
[2020-02-29 07:08] LABS: Slide Review Slide Review Perform
[2020-02-29 08:00] VITALS: BP 130/88; PULSE 66; RESP 18; TEMP 36.6; O2SAT 100
[2020-02-29] MEDS: dextrose 5%-sod chloride 0.45% 1,000 ML 100 ML IV ×2 (08:26→21:47)
--- NOTE | 2020-02-29 11:11 | CTR_ITS ---
PROCEDURE INFORMATION: Exam: CT Head Without And With Contrast Exam date and time: 02/29/2020 11:49 AM Age: 29 years old Clinical indication: Pain; Headache; Additional info: Persistent intractable headache TECHNIQUE: Imaging protocol: Computed tomography of the head without and with intravenous contrast. Radiation optimization: All CT scans at this facility use at least one of these dose optimization techniques: automated exposure control; mA and/or kV adjustment per patient size (includes targeted exams where dose is matched to clinical indication); or iterative reconstruction. Contrast material: OMNI 300; Contrast volume: 95 ml; Contrast route: INTRAVENOUS (IV); COMPARISON: No relevant prior studies available. RADIATION DOSE METRICS: Total DLP (mGy-cm): 1091.32 FINDINGS: Brain: No hemorrhage. Unremarkable white matter. No edema or mass. Cerebral ventricles: No ventriculomegaly. Bones/joints: Unremarkable. No acute fracture. Paranasal sinuses: Visualized sinuses are unremarkable. No fluid levels. Mastoid air cells: Unremarkable. Soft tissues: Unremarkable. CT/CT head wo/w con [id number] IMPRESSION: No acute intracranial abnormality. Radiation Dose CTDIVOL = (mGy): DLP = 1091.32 (mGy-cm)
[2020-02-29] MEDS: ketorolac 30 mg/mL INJ IVP (11:19)
[2020-02-29] MEDS: iohexol 300 mg/mL 100 mL Btl IV (11:53)
[2020-02-29 12:00] VITALS: BP 126/84; PULSE 66; RESP 18; TEMP 36.2; O2SAT 92
--- NOTE | 2020-02-29 14:31 | PM.PN ---
Subjective Subjective: Interval history: Patient stated her headache has worsening and persistent in the past 12 hr with now complaints of neck pain. Informed staff today that multiple kids at home have chicken pox however she has had VZ in childhood. Intially headache had improved with imitrex however stated no relief from either imitrex norco or dilaudid. has been afebrile last night. Continue to also have intermittent right flank pain. Vitals/I&O/Wt Last Vital Signs Temp 97.1 F L 02/29/20 12:00 Pulse 66 02/29/20 12:00 Resp 18 02/29/20 12:00 BP 126/84 02/29/20 12:00 Pulse Ox 92 02/29/20 12:00 02/28/20 02/29/20 02/29/20 22:59 06:59 14:59 Intake Total 1530 / 2530 170 / 2700 1120 / 1120 Output Total 600 / 600 460 / 1060 Balance 930 / 1930 -290 / 1640 1120 / 1120 Physical Exam Narrative: EXAM NARRATIVE: Patient obese female in mod distress from migraine General : Alert, Awake and oriented x 3 HEENT ; EOMI, PERRLA Chest : Clear to auscultation CVS : Regular rate and rythym Abd: soft - positive CVA tenderness on right Ext ; no edema Data : 02/29/20 05:17 02/29/20 05:17 Micro: Microbiology 02/26/20 13:34 Urine Culture - Final Urine,Voided A&P Assessment and plan (1) Sepsis: Status: Acute Qualifiers: Acute renal failure type: unspecified Sepsis acute organ dysfunction status: with acute organ dysfunction Sepsis type: sepsis due to unspecified organism Severe sepsis acute organ dysfunction type: acute renal failure Severe sepsis shock status: without septic shock Qualified Code(s): A41.9 - Sepsis, unspecified organism; R65.20 - Severe sepsis without septic shock; N17.9 - Acute kidney failure, unspecified (2) UTI (urinary tract infection): Status: Acute (3) Migraine: Status: Acute (4) GUTIERREZ (acute kidney injury): Status: Acute Additional A&P Information Sepsis secondary to UTI/ Right Sided Pyelonephritis Acute kidney injury Intractable Migraine Plan: Renal function back to baseline Will obtain CT head w/wo contrast Neck pain likely MSK, kerning/bud sign negative on PE Low suspicion of bacterial meningitis however if persistent fever and headache will obtain LP Possible Viral meningitis - May consider adding acyclovir however no dematomal rash noted Continue Cefepime 2g IV q12hr Afebrile > 24hr Leukocytosis resolved Follow up on culture - NGTD Continue IVF Will give toradol 30 mg IV x 1 Renal US - WNL Full code Regular diet DVT prophylaxis not needed, she is low risk Attestations Medical Necessity Statement*: Will require further hospitalization for management of sepsis with iv abx and intractable migraine. Time Spent in Patient Care: Greater than 35 minutes (>than 50% of time spent in counselling and/or direct pt care on unit). Coding Level of Care Code Acute Surgical Sales Representative for Chg Fwd Diagnoses Sepsis A41.9; R65.20; N17.9 Acute renal failure type: unspecified Sepsis acute organ dysfunction status: with acute organ dysfunction Sepsis type: sepsis due to unspecified organism Severe sepsis acute organ dysfunction type: acute renal failure Severe sepsis shock status: without septic shock UTI (urinary tract infection) N39.0 Migraine G43.909 GUTIERREZ (acute kidney injury) N17.9
[2020-02-29 16:00] VITALS: BP 126/86; PULSE 55; RESP 18; TEMP 36.4; O2SAT 99
[2020-02-29] MEDS: ketorolac 30 mg/mL INJ 15 MG IVP (16:57)
[2020-02-29 19:19] VITALS: BP 122/84; PULSE 58; RESP 18; TEMP 36.7; O2SAT 97
[2020-03-01] VITALS: BP 113/79; PULSE 80; RESP 20; TEMP 36.9; O2SAT 99
[2020-03-01] MEDS: cefepime 2,000 MG in sodium chloride 0.9% (plus) 50 ML 100 MG IV ×2 (01:34→13:13)
[2020-03-01] MEDS: acetaminophen 325 mg Tablet 650 MG PO ×3 (01:35→15:09)
[2020-03-01 04:00] VITALS: BP 121/82; PULSE 62; RESP 20; TEMP 36.3; O2SAT 100
[2020-03-01 06:33] LABS: Basophils # 0.1 10^3/uL (0.0-0.1); Basophils % 0.9 %; Eosinophils # 0.2 10^3/uL (0.0-0.8); Eosinophils % 3.3 %; Hematocrit 33.7 % (37.0-47.0); Lymphocytes # 1.3 10^3/uL (0.8-4.8); Lymphocytes % 22.4 %; Mean Corpuscular HGB Conc 32.6 g/dL (30.0-36.0); Mean Corpuscular Hemoglobin 29.2 pg (28.0-34.0); Mean Corpuscular Volume 89.4 fL (81-99); Mean Platelet Volume 12.5 fL (7.4-10.4); Monocytes # 0.5 10^3/uL (0.2-0.9); Monocytes % 8.4 %; Neutrophils # 3.24 10^3/uL (1.8-7.7); Neutrophils % 55.4 %; Nucleated Red Blood Cells % 0 %; Platelet Count 205 10^3/cmm (130-400); Red Blood Count 3.77 10^6/uL (4.1-5.3); Red Cell Distribution Width 13.8 % (12.1-15.1); White Blood Count 5.8 10^3/uL (4.0-10.0)
[2020-03-01 07:08] VITALS: BP 123/83; PULSE 64; RESP 16; TEMP 36.6; O2SAT 99
[2020-03-01 07:20] LABS: Alanine Aminotransferase 12 U/L (0-33); Albumin Level 2.8 g/dL (3.5-5.2); Alkaline Phosphatase 65 IU/L (35-105); Aspartate Amino Transferase 11 U/L (0-32); Blood Urea Nitrogen 8 mg/dL (6-20); Calcium 8.3 mg/dL (8.5-10.5); Carbon Dioxide 28 mmol/L (22-29); Chloride 104 mmol/L (98-107); Globulin 2.8 g/dL (1.3-4.6); Glucose 113 mg/dL (65-115); Osmolality Calculated 287 mOsm/kg (285-295); Sodium 139 mmol/L (136-145); Total Bilirubin 0.2 mg/dL (0.15-1.2); Total Protein 5.6 g/dL (6.6-8.7)
[2020-03-01 07:32] LABS: Anion Gap 10.8 (5-19); Potassium 3.8 mmol/L (3.5-5.1)
--- NOTE | 2020-03-01 08:38 | PC.NURSE ---
patient reports headache, rates at 6 out of 10 pain scale, prn tylenol given, see MAR for further details, reports foul smelling urine, verbalized has not been drinking much, this nurse provided ice water and a hat to measure I&O. discussed plan of care, verbalized understanding.
[2020-03-01] MEDS: dextrose 5%-sod chloride 0.45% 1,000 ML 100 ML IV ×2 (10:00→15:03)
--- NOTE | 2020-03-01 10:38 | PC.NURSE ---
Patient requesting something more for headache pain, reports tylenol only worked a little bit, Dr. Bañuelos notified.
--- NOTE | 2020-03-01 11:19 | PC.NURSE ---
Patient resting in bed with eyes closed, equal chest rise and fall.
--- NOTE | 2020-03-01 11:33 | PC.NURSE ---
spoke to Laurita at [facility] at 1130 today 03/01/20 who stated that patient's covid test came back negative
[2020-03-01 12:00] VITALS: BP 126/81; PULSE 57; RESP 18; TEMP 36.6; O2SAT 98
--- NOTE | 2020-03-01 15:06 | PC.NURSE ---
Patient states, Do you know when I can go home, because you aren't doing anything here I can't do at home. I can take antibiotics orally. Discussed with patient importance of waiting for physician to round on patient and plan of care. Verbalized understanding and denies further questions. Rates pain at 3 on 0-10 pain scale, reports it is a dull continuous aching headache, PRN tylenol given, see MAR for further details.
--- NOTE | 2020-03-01 15:16 | PM.DCS ---
Discharge Providers Date of Admission: 02/25/20 21:53 Date of Discharge: March 01, 2020 Attending Provider at Admission: Varun Boogie MD Attending Provider at Discharge: Loreto Bañuelos MD Consults: None Primary Care Provider: Salena Gómez DO Diagnoses at Discharge Discharge Diagnosis (1) UTI (urinary tract infection): Status: Acute Permanent problem details: -no UA sent, urine cx negative -treated with cefepime -leukocytosis resolved, afebrile x >48 hrs -blood cx; negative -evidence of R pyelonephritis on imaging Qualifiers: Urinary tract infection type: acute pyelonephritis Qualified Code(s): N10 - Acute pyelonephritis (2) Sepsis: Status: Resolved Qualifiers: Acute renal failure type: unspecified Sepsis acute organ dysfunction status: with acute organ dysfunction Sepsis type: sepsis due to unspecified organism Severe sepsis acute organ dysfunction type: acute renal failure Severe sepsis shock status: without septic shock Qualified Code(s): A41.9 - Sepsis, unspecified organism; R65.20 - Severe sepsis without septic shock; N17.9 - Acute kidney failure, unspecified (3) Migraine: Status: Acute Qualifiers: Migraine type: unspecified Status migrainosus presence: without status migrainosus Intractability: not intractable Qualified Code(s): G43.909 - Migraine, unspecified, not intractable, without status migrainosus (4) GUTIERREZ (acute kidney injury): Status: Resolved Permanent problem details: -renal function normalized Other Information Additional DC diagnoses/information: -Morbid obesity: BMI-35 kg/m2 Reason for Visit Reason for Visit: MIGRAINE X 4 DAYS Hospital Course Hospital Course Patient was admitted to the medical surgical floor and started on IV fluid hydration, broad-spectrum IV antibiotic coverage secondary to noted evidence on imaging of right pyelonephritis. Interestingly, urinalysis was not done but urine culture was sent and so far has been negative. Blood cultures have also been negative. There was concern on admission for sepsis as evidenced by leukocytosis, fever, hypotension all of which has resolved with continued treatment. Oral intake was initially quite limited but this is improved with treatment of infection. She has complained of headaches off and on which she seems to be prone to at baseline secondary to underlying history of migraines; analgesics were provided as needed for pain control. There was some concern for possible infection given persistent headache and fever so there was some consideration given to possible lumbar puncture. However patient has been afebrile for over 48 hours and headaches have been much better controlled with no indication of any focal neurological deficits so LP not done. CT head was done and noted to be unremarkable. Further work-up including imaging did not yield any other source of infection. She did have some acute renal impairment which has resolved with hydration. She would like to be discharged home today as she feels much better. She is encouraged to hydrate appropriately, continue to take her antibiotics as prescribed and to follow-up with her primary care provider. She is advised to seek medical attention immediately should any of her symptoms worsen or recur after completion of treatment. She was tested for COVID-19 (PCR) at [facility], confirmation of negative test today. She has otherwise been hemodynamically stable, voiding independently without difficulty, maintained on room air. Physical Exam Const: COMMON NORMALS: no acute distress, patient oriented x3 and alert GENERAL APPEARANCE: cooperative and comfortable NUTRITIONAL APPEARANCE: obese ORIENTATION/CONSCIOUSNESS: Yes awake OTHER: -in good spirits HENMT: COMMON NORMALS: normocephalic, atraumatic, hearing grossly normal bilaterally and moist oral mucous membranes HEAD & SCALP: normocephalic and atraumatic Eye: COMMON NORMALS: Equal, round and reactive pupils present, EOMs intact bilaterally and conjunctivae normal CONJUNCTIVA: Yes conjunctivae normal PUPIL: Yes Equal, round and reactive pupils present Neck/C-Spine: COMMON NORMALS: full ROM GENERAL: Yes normal visual inspection and Yes trachea midline Resp: COMMON NORMALS: normal respiratory effort, No retractions, No use of accessory muscles and clear to auscultation bilaterally EFFORT & INSPECTION: Yes able to speak in complete sentences, Yes symmetric chest movement and No tachypneic AUSCULTATION: clear to auscultation bilaterally Cardio: COMMON NORMALS: regular rate, regular rhythm, S1 normal heart sound present, S2 normal heart sound present and No murmurs present (Cardio) RATE: regular rate RHYTHM: regular rhythm HEART SOUNDS: S1 normal heart sound present and S2 normal heart sound present GI: COMMON NORMALS: Normal to inspection, nondistended, normoactive bowel sounds present, Soft to palpation and non-tender INSPECTION: Yes central obesity PALPATION: Yes Soft to palpation : COMMON NORMALS: Yes no CVA tenderness BLADDER/KIDNEY EXAM: Yes no CVA tenderness Back/Pelvis: COMMON NORMALS: no CVA tenderness Extremity: COMMON NORMALS: normal to inspection, full ROM and no clubbing, cyanosis or edema; negative for no pedal edema Neuro: COMMON NORMALS: patient oriented x3, moves all extremities, no focal motor deficits, no sensory deficits noted and gait normal SENSORIUM/ORIENTATION: Yes alert Psych: COMMON NORMALS: mental status grossly normal, Normal thought process present, cooperative, normal affect and speech normal SPEECH: Yes normal speech THOUGHT PROCESS: Normal thought process present Skin: COMMON NORMALS: no rashes or lesions noted, no jaundice, no petechiae and no mottling GENERAL SKIN EXAM: no rashes or lesions noted Discharge Data Data Completed and Pending: Completed Studies During Hospitalization Category Date Time Status CT abdomen pelvis wo con [id number] Stat Cat Scan 02/25/20 21:[address] head wo/w con [id number] Routine Cat Scan 02/29/20 11:11 Completed XR chest 1V jose ble [id number] Stat Exams 02/25/20 21:30 Completed US renal BI* [id number] Routine Ultrasound 02/28/20 12:12 Completed Pending at discharge Category Date Time Status Blood Culture Sta t Lab 02/25/20 22:22 Results Labs from last 24 hours 03/01/20 03/01/20 03/01/20 06:50 04:52 04:52 WBC 5.8 RBC 3.77 L Hgb 11.0 L Hct 33.7 L MCV 89.4 MCH 29.2 MCHC 32.6 D RDW 13.8 Plt Count 205 MPV 12.5 H Neut % (Auto) 55.4 Lymph % (Auto) 22.4 Tompkins % (Auto) 8.4 Eos % (Auto) 3.3 Baso % (Auto) 0.9 Neut # (Auto) 3.24 Lymph # (Auto) 1.3 Tompkins # (Auto) 0.5 Eos # (Auto) 0.2 Baso # (Auto) 0.1 Nucleated RBC % (a uto) 0 Nucleated RBCs # 0.0 Sodium 139 Cancelled Potassium 3.8 Cancelled Chloride 104 Cancelled Carbon Dioxide 28 Cancelled Anion Gap 10.8 Cancelled BUN 8 Cancelled Creatinine 0.8 Cancelled GFR Calculation 86.0 L Cancelled Glucose 113 Cancelled Calculated Osmolal ity 287 Cancelled Calcium 8.3 L Cancelled Total Bilirubin 0.2 Cancelled AST 11 Cancelled ALT 12 Cancelled Alkaline Phosphata se 65 Cancelled Total Protein 5.6 L Cancelled Albumin 2.8 L Cancelled Globulin 2.8 Cancelled Vitals: Last Vital Signs Temp 97.9 F 03/01/20 12:00 Pulse 57 L 03/01/20 12:00 Resp 18 03/01/20 12:00 BP 126/81 03/01/20 12:00 Pulse Ox 98 03/01/20 12:00 Discharge Plan Discharge Patient Disposition: Home Condition: Stable Prescriptions: New sulfamethoxazole-trimethoprim [Bactrim DS] 800-160 mg tablet 1 tab PO BID 7 Days Qty: 14 RF: 0 Continued Zofran 4 mg Tablet 4 - 8 mg PO PRN RF: 0 venlafaxine 150 mg Tablet Extended Release 24hr See Rx Instructions .ROUTE .COMPLEX RF: 0 Imitrex See Rx Instructions .ROUTE .COMPLEX RF: 0 Tylenol 3 tab PO PRN RF: 0 Discontinued ibuprofen 200 mg Tablet 800 mg PO PRN RF: 0 Macrobid 100 mg Capsule 100 mg PO BID RF: 0 Discharge Orders: Discharge Order (Routine); Ordered 03/01/20 Ordered By: Loreto Bañuelos Referrals: Salena Gómez DO [Primary Care Provider] - 4-7 days Discharge Diet: Advance as tolerated and Regular Discharge Activity: Increase activity as tolerated Discharge Attestations Time Spent in Discharge Care*: greater than 30 min Specific Discharge Activities: educating patient, discussing with case specialist/social workers/dc planners, documenting/other paperwork and evaluating patient/reviewing data Status at Discharge: Cognitive status at discharge: cognitively intact, Behavioral status at discharge: cooperative, Functional status at discharge: independent ambulation Overall status at discharge: patient is progressing back to baseline Quality Metrics Clinical Quality Measures During this hospital stay, did patient experience: None Coding Level of Care Code 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
[2020-03-01 15:36] VITALS: BP 135/93; PULSE 72; RESP 18; TEMP 36.7; O2SAT 100
--- NOTE | 2020-03-01 16:12 | PC.NURSE ---
discharge instructions reviewed with patient, awaiting meds to beds delivery for discharge. verbalized understanding, denies further questions or concerns.
[2020-03-01 16:14] VITALS: BP 135/93; PULSE 72; RESP 18; TEMP 36.7; O2SAT 100
== END 2020-03-01 17:22 | disposition home or self-care (01) | DRG 872 ==
LOC: ER 18:30 → MEDSURG 23:20
PROVIDERS: Hospitalist; Admitting Provider Internal Medicine; Emergency Provider Family Medicine; PCP Family Medicine; Visit Provider Family Medicine
DX: A41.9 Sepsis, unspecified organism (principal); N10 Acute pyelonephritis; N17.9 Acute kidney failure, unspecified; E66.01 Morbid (severe) obesity due to excess calories; Z68.35 Body mass index [BMI] 35.0-35.9, adult; G43.909 Migraine, unspecified, not intractable, without status migrainosus; F32.9 Major depressive disorder, single episode, unspecified; M79.7 Fibromyalgia; Z87.891 Personal history of nicotine dependence
CPT/HCPCS: 12345; 36415; 70470; 71045; 74176; 76770; 80048; 80053; 82550; 83605; 84145; 84703; 85025; 86140; 87040; 87086; 87426; 87804; 96375; 99283; J0692; J1100; J1170; J1200; J1885; J2270; J2405; J2765; J3475; J7030; J7799; Q9967

== ENCOUNTER → 2020-03-09 11:31 | Outpatient (BNVA) | payer SELFPAY | PROVIDERS: PCP Family Medicine; Visit Provider Family Medicine | DX: N10 Acute pyelonephritis (principal); B96.89 Other specified bacterial agents as the cause of diseases classified elsewhere | CPT/HCPCS: 80048 ==

== ENCOUNTER 2020-10-30 13:43 | Emergency (ER) | payer MEDICAID, SELFPAY ==
[2020-10-30 14:37] VITALS: BP 120/89; PULSE 94; RESP 19; TEMP 37.4; O2SAT 97; BMI 38.6
--- NOTE | 2020-10-30 15:09 | XRR_ITS ---
PROCEDURE INFORMATION: Exam: XR Chest Exam date and time: 10/30/2020 3:09 PM Age: 30 years old Clinical indication: Cough TECHNIQUE: Imaging protocol: XR of the chest. Views: 1 view. COMPARISON: CR XR chest 1V portable [id number] 02/25/2020 10:18 PM FINDINGS: Lungs: Unremarkable. No consolidation. Pleural spaces: Unremarkable. No pleural effusion. No pneumothorax. Heart/Mediastinum: Unremarkable. No cardiomegaly. Bones/joints: Unremarkable. XR/XR chest 1V portable [id number] IMPRESSION: No acute findings.
--- NOTE | 2020-10-30 15:12 | W.ED.COVID ---
HPI - COVID General: Chief Complaint: COVID symptoms Stated Complaint: COVID+: DIFF BREATHING, CP Time Seen by Provider: 10/30/20 15:12 Triage information: Has fever, cough or shortness of breath. No known COVID + exposure last 14 days History of Present Illness: HPI Narrative: Patient positive Covid on has had symptoms since Sunday. Sent here by her aunt who is a nurse practitioner and wants to make sure she did not have pneumonia. MD complaint: known COVID positive Prior covid testing: yes, results known Prior testing date: 10/28/20 COVID 19 common symptoms: positive fever(s), chills, cough, non-productive cough, body aches and nasal congestion; negative headache(s), nausea or vomiting COVID 19 other sytmptoms: positive pleuritic pain; negative chest pain Onset (ago): day(s) Severity: moderate Treatment prior to arrival: acetaminophen and ibuprofen COVID Results: SARS-CoV-2 Antigen (Rapid) Negative (Negative) 02/25/20 19:29 02/25/20 Review of Systems Const: Reports: fever(s), chills and body aches Eyes: Denies: change in vision or blurry vision ENMT: Reports: nasal congestion Card: Denies: chest pain or dyspnea on exertion Resp: Reports: non-productive cough GI: Denies: abdominal pain, nausea or vomiting Musc: Denies: extremity pain Skin/Breast: Denies: rash Neuro: Denies: headache(s) Psych: Denies: anxiety or depression Pan/Lymph: Denies: easy bruising PFSH ED PFSH: Medical History (Updated 10/30/20 @ 16:21 by KRISTI Anguiano) 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 Depression Fibromyalgia Diag age 18. Migraine Surgical History History of bilateral tubal ligation (02/11/19) Laparoscopic bilateral complete salpingectomy. Performed by Dr. Bustos at [facility] [place]. History of bladder surgery (~2004) Reconstruction by Dr. Willson History of tonsillectomy and adenoidectomy (~2005) Family History Mother Lung disease Diabetes Social History Smoking and tobacco status: former smoker Quit status (tobacco): has quit using tobacco Year quit tobacco: 09/2014 Former quit date comment: Started smoking at age 17 and smoked 1 pack per day Alcohol intake: never Female Reproductive History: Date of last menstrual period: 02/18/20 Physical Exam Const: COMMON NORMALS: no acute distress, average body habitus and patient oriented x3 HENMT: COMMON NORMALS: normocephalic HEAD & SCALP: normal to inspection and normocephalic FACE & SINUS: normal facial exam Eye: COMMON NORMALS: conjunctivae normal GENERAL EYE: appearance normal, both eyes and all related structures CONJUNCTIVA: Yes conjunctivae normal Neck/C-Spine: COMMON NORMALS: no JVD Chest: COMMONS NORMALS: normal inspection of the chest Resp: COMMON NORMALS: normal respiratory effort and clear to auscultation bilaterally AUSCULTATION: clear to auscultation bilaterally Cardio: COMMON NORMALS: no JVD, regular rate and regular rhythm RATE: regular rate RHYTHM: regular rhythm GI: INSPECTION: Yes normal to inspection Extremity: COMMON NORMALS: normal to inspection and full ROM Neuro: COMMON NORMALS: patient oriented x3 Course Vital Signs: Vital signs: Vital Signs Temperature 99.3 F 10/30/20 14:37 Pulse Rate 99 10/30/20 16:42 Respiratory Rate 18 10/30/20 16:42 Blood Pressure 131/91 10/30/20 16:42 Pulse Oximetry 100 10/30/20 16:42 MDM - COVID MDM Narrative: Medical decision making narrative: Patient stable radiology did not show any signs of pneumonia. Patient presently does not have fever. COVID Results: SARS-CoV-2 Antigen (Rapid) Negative (Negative) 02/25/20 19:29 02/25/20 Discharge Plan Discharge Patient Disposition: Home Clinical Impression: COVID-19 Condition: Stable Prescriptions: New Decadron 6 mg tablet 6 mg PO DAILY Qty: 7 RF: 0 No Action Zofran 4 mg Tablet 4 - 8 mg PO PRN RF: 0 venlafaxine 150 mg Tablet Extended Release 24hr See Rx Instructions .ROUTE .COMPLEX RF: 0 Imitrex See Rx Instructions .ROUTE .COMPLEX RF: 0 Tylenol 3 tab PO PRN RF: 0 Discharge Orders: Discharge ED (Routine); Ordered 10/30/20 Ordered By: Alvin Ordaz Referrals: Salena Gómez DO [Primary Care Provider] - Discharge Diet: Usual diet Discharge Activity: Increase activity as tolerated Patient Instructions: Viral Syndrome (ED) Activity Restrictions/Additional Instructions: Follow-up with medical provider as directed. Take medications as prescribed. Return to the ER or your medical provider if condition worsens. Please read and understand discharge instructions. If any questions ask please. 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
[2020-10-30 16:42] VITALS: BP 131/91; PULSE 99; RESP 18; O2SAT 100
== END 2020-10-30 16:53 | disposition home or self-care (01) ==
PROVIDERS: Emergency Provider Nurse Practitioner Family; PCP Family Medicine
DX: U07.1 COVID-19 (principal); Z87.891 Personal history of nicotine dependence
CPT/HCPCS: 71045; 99282

== ENCOUNTER → 2021-03-08 15:07 | Outpatient (BNVA) | payer MEDICAID, SELFPAY | PROVIDERS: PCP Family Medicine; Visit Provider Registered Nurse Neonatal Intensive Care | DX: J02.9 Acute pharyngitis, unspecified (principal); J06.9 Acute upper respiratory infection, unspecified | CPT/HCPCS: 87071; 87880 ==

== ENCOUNTER → 2021-06-20 10:45 | Outpatient (BNVA) | payer MEDICAID, SELFPAY | PROVIDERS: PCP Family Medicine; Visit Provider Nurse Practitioner | DX: N39.0 Urinary tract infection, site not specified (principal) | CPT/HCPCS: 81000 ==

== ENCOUNTER → 2021-12-09 10:25 | Outpatient (BNVA) | payer MEDICAID, SELFPAY | PROVIDERS: PCP Family Medicine; Visit Provider Registered Nurse Neonatal Intensive Care | DX: J02.9 Acute pharyngitis, unspecified (principal); J06.9 Acute upper respiratory infection, unspecified | CPT/HCPCS: 87880 ==

== ENCOUNTER → 2022-03-23 11:55 | Outpatient (BNVA) | payer MEDICAID, SELFPAY | PROVIDERS: PCP Family Medicine; Visit Provider Emergency Medicine | DX: R39.9 Unspecified symptoms and signs involving the genitourinary system (principal); R30.0 Dysuria | CPT/HCPCS: 81000; 87086 ==

== ENCOUNTER → 2022-09-09 12:19 | Outpatient (BNVA) | payer MEDICAID, SELFPAY | PROVIDERS: PCP Family Medicine; Visit Provider Emergency Medicine | DX: S80.02XA Contusion of left knee, initial encounter (principal); W22.8XXA Striking against or struck by other objects, initial encounter | CPT/HCPCS: 73562 ==

== ENCOUNTER → 2023-05-27 10:57 | Outpatient (BNVA) | payer BC, SELFPAY | PROVIDERS: PCP Family Medicine; Visit Provider Registered Nurse Neonatal Intensive Care | DX: J02.9 Acute pharyngitis, unspecified (principal) | CPT/HCPCS: 87880 ==

== ENCOUNTER 2024-01-30 16:35 | Emergency (ER) | payer OTHER, SELFPAY ==
[2024-01-30 16:43] VITALS: BP 157/106; PULSE 78; RESP 16; TEMP 36.7; O2SAT 98; BMI 42.5
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
[2024-01-30 18:44] VITALS: BP 148/91; PULSE 81; O2SAT 99
== END 2024-01-30 18:44 | disposition home or self-care (01) ==
PROVIDERS: Emergency Provider Physician Assistant; PCP Family Medicine
DX: S09.90XA Unspecified injury of head, initial encounter (principal); W50.0XXA Accidental hit or strike by another person, initial encounter
CPT/HCPCS: 99283